=== PATIENT | male | born 1970 | race Caucasian/White ===

== ENCOUNTER 2021-06-25 08:26 | Emergency (ER) | payer BC ==
[2021-06-25 09:33] LABS: HEMOGLOBIN 18.3 gm/dl (14.0-17.5); RED BLOOD COUNT 6.07 M/UL (4.20-5.50); WHITE BLOOD COUNT 7.4 K/UL (4.5-11.0)
== END 2021-06-25 12:38 | disposition home or self-care (01) ==
LOC: ER1 08:26
PROVIDERS: Nurse Practitioner
DX: K56.7 Ileus, unspecified (principal); K21.9 Gastro-esophageal reflux disease without esophagitis; R10.813 Right lower quadrant abdominal tenderness; R10.814 Left lower quadrant abdominal tenderness
CPT/HCPCS: 80053; 81001; 82150; 83690; 85025; 96374; 96375; 96376; 99284; J2270; J2405; Q9967